=== PATIENT | female | born 1990 | race Caucasian/White ===

== ENCOUNTER 2018-11-10 10:44 | Emergency (ER) | payer MEDICAID ==
[~2018-11-10] VITALS: Ht 157.5 cm; Wt 61.2 kg
[2018-11-10 10:47] VITALS: BP 136/79; PULSE 84; RESP 18; Ht 157.5 cm; Wt 61.2 kg
[2018-11-10] MEDS ORDERED: AZIT250T PO (12:37)
--- NOTE | 2018-11-11 18:06 | ERD ---
ER Documentation Chief Complaint Chief Complaint coughing feels short of breath HPI 28 female presents with complaint of cough for the past several months. Patient states that she was told that her cough is either due to allergies or possibly asthma and she would like to know exactly what is causing it. She states that the cough is persisted despite taking cough medications. Patient denies any fevers, chills, wheezing, respiratory distress, stridor, headaches, chest pain. ROS All systems reviewed and are negative except as per history of present illness. Medications Home Meds Active Scripts Azithromycin* (Zithromax*) 250 Mg Tablet, 250 MG PO .ZPACK DIRECTED, #6 TAB TAKE 500 MG (2 TABS) THE FIRST DAY THEN 250 MG (1 TAB) DAYS 2-5 Prov:JACKIOLIVIA 11/10/18 Allergies Allergies: Coded Allergies: No Known Allergy (Unverified , 11/10/18) PMhx/Soc Medical and Surgical Hx: pt denies Medical Hx, pt denies Surgical Hx History of Surgery: No Anesthesia Reaction: No Hx Neurological Disorder: No Hx Respiratory Disorders: No Hx Cardiac Disorders: No Hx Psychiatric Problems: No Hx Miscellaneous Medical Probl: No Hx Alcohol Use: No Hx Substance Use: No Hx Tobacco Use: No Smoking Status: Never smoker FmHx Family History: No diabetes, No coronary disease, No other Physical Exam Vitals Vital Signs Date Temp Pulse Resp B/P (MAP) Pulse Ox O2 O2 Flow FiO2 Time Delivery Rate 11/10/18 99.4 84 18 136/79 100 10:47 (98) Physical Exam Const: No acute distress Head: Atraumatic Eyes: Normal Conjunctiva ENT: Normal External Ears, Nose and Mouth. Neck: Full range of motion. No meningismus. Resp: Clear to auscultation bilaterally Cardio: Regular rate and rhythm, no murmurs Abd: Soft, non tender, non distended. Normal bowel sounds Skin: No petechiae or rashes Back: No midline or flank tenderness Ext: No cyanosis, or edema Neur: Awake and alert Psych: Normal Mood and Affect Results 24 hrs Laboratory Tests Test 11/10/18 11:42 POC Beta HCG, Qualitative POSITIVE Procedures/MDM DIAGNOSTIC IMAGING REPORT Patient: JACQUELINE FUNG : 1990 Age: 28 Sex: F MR #: [id number] DOS: 11/10/18 1123 Ordering MD: OLIVIA ECHEVERRIA Location: [facility] Room/Bed: PROCEDURE: XR Chest. CLINICAL INDICATION: Shortness of breath. TECHNIQUE: Single frontal view. COMPARISON: None. FINDINGS: There is right lung base consolidation. The heart size is normal. There is no pleural effusion. There is no pneumothorax. IMPRESSION: There is right lung base consolidation. Physician Nancie Date Time Electronically viewed and signed by Physician Nancie on 11/10/2018 12:04 RD/ CC: OLIVIA ECHEVERRIA [id number] MDM: Given the length of the patient's cough chest x-ray was ordered to rule out pneumonia. Chest x-ray showed focal consolidation the patient will be treated for possible pneumonia with Z-Zaire. In addition, patient's urine hCG was positive. Patient was unaware that she was so she was advised to follow-up with an OB within 24 hours for care. Patient understood and agreed to do this. All this was explained to patient with nurse executive present. I have low suspicion for tubercolosis, pleural effusion, acute heart failure, foreign body aspiration, pulmonary embolism, pneumothorax, or other emergent etiology. Patients O2 sat is normal and is not having difficulty breathing, therefore patient is fit for discharge. At this time, patient is stable for discharge and outpatient management. I have instructed the patient to follow-up with his/her primary care physician in 1-2 days. I have discussed with the patient the possibility of needing to see a specialist for further workup and imaging studies if symptoms persist. I have instructed the patient to promptly return to the ER for any new or worsening symptoms including but not limited to increased pain, fever, nausea, vomiting, weakness or LOC. The patient and/or family expressed understanding of and agreement with this plan. All questions were answered. Home care instructions were provided. Communication with patient both during the exam and instructions for discharge were performed with using a nurse executive . Patient gave verbal confirmation to the practitioner, through the nurse executive, that they understood everythign that was being said to them. DISCLAIMER: Inadvertent spelling and grammatical errors are likely due to EHR/dictation soft grey use and do not reflect on the overall quality of patient care. Also, please note that the electronic time recorded on this note does not necessarily reflect the actual time of the patient encounter. Departure Diagnosis: Primary Impression: Pneumonia Additional Impression: Condition: Stable Patient Instructions: Adapting to : First Trimester, Pneumonia (Adult) Referrals: [facility] YOU HAVE RECEIVED A MEDICAL SCREENING EXAM AND THE RESULTS INDICATE THAT YOU DO NOT HAVE A CONDITION THAT REQUIRES URGENT TREATMENT IN THE EMERGENCY DEPARTMENT. FURTHER EVALUATION AND TREATMENT OF YOUR CONDITION CAN WAIT UNTIL YOU ARE SEEN IN YOUR DOCTORS OFFICE WITHIN THE NEXT 1-2 DAYS. IT IS YOUR RESPONSIBILITY TO MAKE AN APPOINTMENT FOR FOLOW-UP CARE. IF YOU HAVE A PRIMARY DOCTOR --you should call your primary doctor and schedule an appointment IF YOU DO NOT HAVE A PRIMARY DOCTOR YOU CAN CALL OUR PHYSICIAN REFERRAL HOTLINE AT IF YOU CAN NOT AFFORD TO SEE A PHYSICIAN YOU CAN CHOSE FROM THE FOLLOWING [facility]AT[facility] HOSP[facility] CLINICS [facility] [address] [facility] [facility] [address] [facility] [facility] [address] [facility] [facility] [address] [facility]. [facility] [address] [facility]. [facility]. [address] Additional Instructions: FOLLOW UP WITH YOUR PRIMARY CARE PHYSICIAN TOMORROW regarding both the pneumonia as well as your . Return to this facility if you are not improving as expected. OLIVIA ECHEVERRIA Nov 11, 2018 18:06
== END 2018-11-10 12:53 | disposition home or self-care (01) ==
LOC: FTE 10:44
DX: J18.9 Pneumonia, unspecified organism (principal); Z33.1 Pregnant state, incidental
CPT/HCPCS: 71045; 81025; Z7502